=== PATIENT | male | born 1990 | race Caucasian/White ===

== ENCOUNTER 2021-08-29 05:52 | Emergency (ER) | payer MEDICAID, OTHER ==
[~2021-08-29] VITALS: Ht 182.9 cm; Wt 95.3 kg
[2021-08-29 07:56] VITALS: BP 130/77
[2021-08-29] MEDS ORDERED: LIDOCAINE 1% HCL (LOCAL ANESTH.) INJ 20ML MDV ID ONE (08:15)
[2021-08-29] MEDS ORDERED: CLIN300C8 PO (08:26)
[2021-08-29] MEDS ORDERED: CEPH500T PO (08:26)
[2021-08-29] MEDS ORDERED: IBUPROFEN 800 MG TAB PO ONE (08:30)
[2021-08-29] MEDS ORDERED: cefTRIAXone SOD 1,000 MG VL IM ONE (08:45)
== END 2021-08-29 09:09 | disposition home or self-care (01) ==
LOC: ER 05:52
DX: L03.312 Cellulitis of back [any part except buttock and flank] (principal); F17.210 Nicotine dependence, cigarettes, uncomplicated; Z79.2 Long term (current) use of antibiotics; Z79.899 Other long term (current) drug therapy
CPT/HCPCS: 96372; 99283; J0696